=== PATIENT | male | born 1945 | race African-American/Black ===

== ENCOUNTER 2017-01-31 09:32 | Inpatient (IN) | payer MEDICARE, OTHER ==
[~2017-01-31] VITALS: Ht 172.7 cm; Wt 115.3 kg
[2017-01-31 10:30] VITALS: BP 112/78
[2017-01-31 11:11] LABS: HEMATOCRIT 38.5 % (39.0-50.0); HEMOGLOBIN 10.8 g/dl (14.0-18.0); MEAN CELL VOLUME 75.2 fL CALC (80.0-100.0); MEAN CORPUSCULAR HGB 21.1 pG CALC (26.0-32.0); MEAN CORPUSCULAR HGB CONC 28.1 g/L CALC (32.0-36.0); RED BLOOD COUNT 5.12 mill/uL (4.70-6.10); RED CELL DISTRI WIDTH 16.6 % (11.5-15.5)
[2017-01-31 11:23] LABS: ALBUMIN 3.8 g/dL (3.2-5.0); CALCIUM 9.2 mg/dL (8.4-10.2); CREATININE 1.5 mg/dL (0.7-1.3); MAGNESIUM 1.8 mg/dL (1.6-2.3); POTASSIUM 3.9 mmol/l (3.5-5.1)
[2017-01-31 11:28] LABS: INTERNATIONAL NORMALIZED RATIO 1.2 RATIO (0.7-1.3); PROTHROMBIN TIME 12.7 SECONDS (9.0-12.5)
[2017-01-31] MEDS ORDERED: LISINOPRIL20 M1 PO (12:03)
[2017-01-31] MEDS ORDERED: VICTOZA18 MG/3 ML SC (12:05)
[2017-01-31] MEDS ORDERED: AMIODARONE200 MG PO (12:06)
[2017-01-31] MEDS ORDERED: CLOPIDOGREL75 MG PO (12:07)
[2017-01-31] MEDS ORDERED: CRESTOR20 MG PO (12:09)
[2017-01-31] MEDS ORDERED: DEMADEX10 MG PO (12:10)
[2017-01-31 15:47] VITALS: BP 121/81
[2017-01-31 18:23] LABS: URINE BILIRUBIN - DIPSTICK NEGATIVE (NEGATIVE); URINE BLOOD DIPSTICK NEGATIVE (NEGATIVE); URINE CLARITY CLEAR; URINE COLOR YELLOW; URINE GLUCOSE - DIPSTICK NEGATIVE (NEGATIVE); URINE KETONE NEGATIVE (NEGATIVE); URINE LEUK ESTERASE NEGATIVE (Negative); URINE NITRITE - DIPSTICK NEGATIVE (Negative); URINE PH 5.5 (4.5-8.0); URINE PROTEIN - DIPSTICK NEGATIVE (NEG-TRACE); URINE SPECIFIC GRAVITY <=1.005; URINE UROBILINOGEN - DIPSTICK 0.2 E.U./dL (0.2)
[2017-01-31 19:24] VITALS: BP 128/78
[2017-02-01 04:35] VITALS: BP 122/87
[2017-02-01 06:33] LABS: HEMATOCRIT 38.7 % (39.0-50.0); HEMOGLOBIN 10.9 g/dl (14.0-18.0); IMMATURE GRANULOCYTES 0.4 % (0.0-1.0); MEAN CELL VOLUME 75.6 fL CALC (80.0-100.0); MEAN CORPUSCULAR HGB 21.3 pG CALC (26.0-32.0); MEAN CORPUSCULAR HGB CONC 28.2 g/L CALC (32.0-36.0); NEUT# 7.11 thou/uL (1.82-7.42); RED BLOOD COUNT 5.12 mill/uL (4.70-6.10); RED CELL DISTRI WIDTH 16.6 % (11.5-15.5)
[2017-02-01 07:07] LABS: ALBUMIN 3.7 g/dL (3.2-5.0); BILIRUBIN, TOTAL 0.5 mg/dL (0.0-1.4); CALCIUM 9.5 mg/dL (8.4-10.2); CREATININE 1.6 mg/dL (0.7-1.3); MAGNESIUM 1.7 mg/dL (1.6-2.3); POTASSIUM 3.7 mmol/l (3.5-5.1); TOTAL PROTEIN 6.6 g/dL (6.3-8.2)
[2017-02-01 09:09] VITALS: BP 107/63
[2017-02-01 12:13] VITALS: BP 95/62
[2017-02-01 16:27] VITALS: BP 94/66
[2017-02-01 19:35] VITALS: BP 134/80
[2017-02-01 23:45] VITALS: BP 95/66
[2017-02-02] VITALS (7 sets, daily range): BP systolic 91–118; BP diastolic 61–75
[2017-02-02 05:27] LABS: HEMATOCRIT 37.3 % (39.0-50.0); HEMOGLOBIN 10.6 g/dl (14.0-18.0); IMMATURE GRANULOCYTES 0.2 % (0.0-1.0); MEAN CELL VOLUME 75.4 fL CALC (80.0-100.0); MEAN CORPUSCULAR HGB 21.4 pG CALC (26.0-32.0); MEAN CORPUSCULAR HGB CONC 28.4 g/L CALC (32.0-36.0); NEUT# 7.24 thou/uL (1.82-7.42); RED BLOOD COUNT 4.95 mill/uL (4.70-6.10); RED CELL DISTRI WIDTH 16.5 % (11.5-15.5)
[2017-02-02 05:42] LABS: CALCIUM 9.5 mg/dL (8.4-10.2); CREATININE 1.6 mg/dL (0.7-1.3); MAGNESIUM 1.8 mg/dL (1.6-2.3); POTASSIUM 3.8 mmol/l (3.5-5.1)
[2017-02-03 04:15] VITALS: BP 97/53
[2017-02-03 05:11] LABS: HEMATOCRIT 36.8 % (39.0-50.0); HEMOGLOBIN 10.4 g/dl (14.0-18.0); IMMATURE GRANULOCYTES 0.3 % (0.0-1.0); MEAN CELL VOLUME 75.6 fL CALC (80.0-100.0); MEAN CORPUSCULAR HGB 21.4 pG CALC (26.0-32.0); MEAN CORPUSCULAR HGB CONC 28.3 g/L CALC (32.0-36.0); NEUT# 6.69 thou/uL (1.82-7.42); RED BLOOD COUNT 4.87 mill/uL (4.70-6.10); RED CELL DISTRI WIDTH 16.6 % (11.5-15.5)
[2017-02-03 05:20] VITALS: BP 90/53
[2017-02-03 05:26] LABS: CALCIUM 9.3 mg/dL (8.4-10.2); CREATININE 1.7 mg/dL (0.7-1.3); POTASSIUM 3.8 mmol/l (3.5-5.1)
[2017-02-03 07:58] VITALS: BP 100/62
[2017-02-03 09:23] VITALS: BP 130/70
[2017-02-03] MEDS ORDERED: CARVEDILOL6.25 MG PO (12:32)
== END 2017-02-03 15:50 | disposition home or self-care (01) | DRG 291 ==
LOC: ENPENDDIS → MS2 09:32
PROVIDERS: ADMIT Internal Medicine; ATTEND Internal Medicine
DX: I13.0 Hypertensive heart and chronic kidney disease with heart failure and stage 1 through stage 4 chronic kidney disease, or unspecified chronic kidney disease (principal); I50.23 Acute on chronic systolic (congestive) heart failure; E11.22 Type 2 diabetes mellitus with diabetic chronic kidney disease; E11.65 Type 2 diabetes mellitus with hyperglycemia; N18.3 Chronic kidney disease, stage 3 (moderate); I25.5 Ischemic cardiomyopathy; I48.91 Unspecified atrial fibrillation; E78.5 Hyperlipidemia, unspecified; E66.01 Morbid (severe) obesity due to excess calories; G47.33 Obstructive sleep apnea (adult) (pediatric); I70.209 Unspecified atherosclerosis of native arteries of extremities, unspecified extremity; I25.118 Atherosclerotic heart disease of native coronary artery with other forms of angina pectoris; D63.8 Anemia in other chronic diseases classified elsewhere; Z95.810 Presence of automatic (implantable) cardiac defibrillator; Z95.1 Presence of aortocoronary bypass graft; Z87.891 Personal history of nicotine dependence; Z79.84 Long term (current) use of oral hypoglycemic drugs; Z68.38 Body mass index [BMI] 38.0-38.9, adult
CPT/HCPCS: A9540; A9567

== ENCOUNTER 2017-08-21 13:54 | Inpatient (IN) | payer MEDICARE, OTHER ==
[~2017-08-21] VITALS: Ht 175.3 cm; Wt 120.8 kg
[~2017-08-21 13:54] MED LIST: AMIODARONE200 MG PO; CARVEDILOL6.25 MG PO; CLOPIDOGREL75 MG PO; CRESTOR20 MG PO; DEMADEX10 MG PO; LISINOPRIL20 M1 PO; VICTOZA18 MG/3 ML SC
[2017-08-21 14:40] VITALS: BP 116/89
[2017-08-21] MEDS ORDERED: ATORVASTATIN CA40 MG PO (15:03)
[2017-08-21] MEDS ORDERED: ENTRESTO 24-261 TAB (15:04)
[2017-08-21 15:11] LABS: HEMATOCRIT 44.8 % (39.0-50.0); HEMOGLOBIN 12.4 g/dl (14.0-18.0); IMMATURE GRANULOCYTES 0.5 % (0.0-1.0); MEAN CELL VOLUME 78.3 fL CALC (80.0-100.0); MEAN CORPUSCULAR HGB 21.7 pG CALC (26.0-32.0); MEAN CORPUSCULAR HGB CONC 27.7 g/L CALC (32.0-36.0); NEUT# 8.86 thou/uL (1.82-7.42); RED BLOOD COUNT 5.72 mill/uL (4.70-6.10)
[2017-08-21 15:21] LABS: ACT PARTIAL THROMBO TIME 25.2 SECONDS (20.0-32.5); INTERNATIONAL NORMALIZED RATIO 1.4 RATIO (0.7-1.3); PROTHROMBIN TIME 15.9 SECONDS (9.0-12.5)
[2017-08-21 15:22] LABS: ALBUMIN 3.3 g/dL (3.2-5.0)
[2017-08-21 15:54] LABS: TSH, 3RD GENERATION 4.37 uIU/mL (0.47 - 4.68)
[2017-08-21 15:59] VITALS: BP 121/90
[2017-08-21 16:34] LABS: ALBUMIN 3.3 g/dL (3.2-5.0); BILIRUBIN, TOTAL 2.9 mg/dL (0.0-1.4); CALCIUM 9.5 mg/dL (8.4-10.2); CREATININE 1.6 mg/dL (0.7-1.3); POTASSIUM 3.5 mmol/l (3.5-5.1); TOTAL PROTEIN 5.8 g/dL (6.3-8.2)
[2017-08-21] MEDS ORDERED: PYRIDOXINE25 MG PO (16:46)
[2017-08-21] MEDS ORDERED: FISH OIL1000 MG PO (16:46)
[2017-08-21 19:07] VITALS: BP 108/83
[2017-08-21 23:30] VITALS: BP 112/64
[2017-08-22] VITALS (25 sets, daily range): BP systolic 82–114; BP diastolic 53–82
[2017-08-22 09:50] LABS: CREATININE 1.6 mg/dL (0.7-1.3); POTASSIUM 3.5 mmol/l (3.5-5.1)
[2017-08-22 10:01] LABS: HEMOGLOBIN 12.3 g/dl (14.0-18.0); IMMATURE GRANULOCYTES 0.3 % (0.0-1.0); MEAN CELL VOLUME 79.4 fL CALC (80.0-100.0); MEAN CORPUSCULAR HGB 21.7 pG CALC (26.0-32.0); MEAN CORPUSCULAR HGB CONC 27.3 g/L CALC (32.0-36.0); NEUT# 9.33 thou/uL (1.82-7.42); RED BLOOD COUNT 5.67 mill/uL (4.70-6.10); RED CELL DISTRI WIDTH 21.9 % (11.5-15.5)
[2017-08-22 17:02] LABS: URINE BLOOD DIPSTICK NEGATIVE (NEGATIVE); URINE COLOR YELLOW; URINE GLUCOSE - DIPSTICK NEGATIVE (NEGATIVE); URINE KETONE NEGATIVE (NEGATIVE); URINE LEUK ESTERASE NEGATIVE (NEGATIVE); URINE NITRITE - DIPSTICK NEGATIVE (Negative); URINE PH 5.5 (4.5-8.0); URINE PROTEIN - DIPSTICK TRACE mg/dL (NEG-TRACE); URINE SPECIFIC GRAVITY 1.015
[2017-08-22 17:26] LABS: URINE BILIRUBIN - DIPSTICK SMALL (NEGATIVE); URINE CLARITY CLEAR
[2017-08-23] VITALS (65 sets, daily range): BP systolic 74–125; BP diastolic 53–88
[2017-08-23 04:53] LABS: HEMATOCRIT 45.4 % (39.0-50.0); HEMOGLOBIN 12.6 g/dl (14.0-18.0); MEAN CELL VOLUME 79.1 fL CALC (80.0-100.0); MEAN CORPUSCULAR HGB CONC 27.8 g/L CALC (32.0-36.0); RED BLOOD COUNT 5.74 mill/uL (4.70-6.10); RED CELL DISTRI WIDTH 21.4 % (11.5-15.5)
[2017-08-23 05:05] LABS: CALCIUM 9.3 mg/dL (8.4-10.2); CREATININE 1.6 mg/dL (0.7-1.3); POTASSIUM 4.2 mmol/l (3.5-5.1)
[2017-08-24] VITALS (38 sets, daily range): BP systolic 82–148; BP diastolic 55–101
[2017-08-24 05:15] LABS: HEMATOCRIT 44.6 % (39.0-50.0); HEMOGLOBIN 12.3 g/dl (14.0-18.0); IMMATURE GRANULOCYTES 0.6 % (0.0-1.0); MEAN CELL VOLUME 79.1 fL CALC (80.0-100.0); MEAN CORPUSCULAR HGB 21.8 pG CALC (26.0-32.0); MEAN CORPUSCULAR HGB CONC 27.6 g/L CALC (32.0-36.0); NEUT# 9.5 thou/uL (1.82-7.42); RED BLOOD COUNT 5.64 mill/uL (4.70-6.10); RED CELL DISTRI WIDTH 21.6 % (11.5-15.5)
[2017-08-24 05:30] LABS: CALCIUM 9.1 mg/dL (8.4-10.2); CREATININE 1.6 mg/dL (0.7-1.3); POTASSIUM 3.8 mmol/l (3.5-5.1)
[2017-08-25] VITALS (25 sets, daily range): BP systolic 82–123; BP diastolic 53–93
[2017-08-25 07:01] LABS: HEMATOCRIT 45.2 % (39.0-50.0); HEMOGLOBIN 12.4 g/dl (14.0-18.0); IMMATURE GRANULOCYTES 0.3 % (0.0-1.0); MEAN CELL VOLUME 79.6 fL CALC (80.0-100.0); MEAN CORPUSCULAR HGB 21.8 pG CALC (26.0-32.0); MEAN CORPUSCULAR HGB CONC 27.4 g/L CALC (32.0-36.0); NEUT# 10.08 thou/uL (1.82-7.42); RED BLOOD COUNT 5.68 mill/uL (4.70-6.10); RED CELL DISTRI WIDTH 21.7 % (11.5-15.5)
[2017-08-25 07:12] LABS: CALCIUM 9.4 mg/dL (8.4-10.2); CREATININE 1.5 mg/dL (0.7-1.3); POTASSIUM 4.1 mmol/l (3.5-5.1)
== END 2017-08-25 20:04 | disposition short-term general hospital (02) | DRG 291 ==
LOC: MS2 13:54 → ICU 08-22 10:01 → MS2 08-22 10:01 → ICU 08-22 10:24
PROVIDERS: Internal Medicine; Nurse Practitioner Family; ADMIT Internal Medicine; ATTEND Internal Medicine
PROC: 02HV33Z Insertion of Infusion Device into Superior Vena Cava, Percutaneous Approach (ICD-10-PCS; principal; 2017-08-22)
PROC: B518ZZA Fluoroscopy of Superior Vena Cava, Guidance (ICD-10-PCS; 2017-08-22)
PROC: 02PYX3Z Removal of Infusion Device from Great Vessel, External Approach (ICD-10-PCS; 2017-08-25)
PROC: 02HV33Z Insertion of Infusion Device into Superior Vena Cava, Percutaneous Approach (ICD-10-PCS; 2017-08-25)
PROC: B518ZZA Fluoroscopy of Superior Vena Cava, Guidance (ICD-10-PCS; 2017-08-25)
DX: I13.0 Hypertensive heart and chronic kidney disease with heart failure and stage 1 through stage 4 chronic kidney disease, or unspecified chronic kidney disease (principal); I50.23 Acute on chronic systolic (congestive) heart failure; I47.2 Ventricular tachycardia; E11.22 Type 2 diabetes mellitus with diabetic chronic kidney disease; I48.91 Unspecified atrial fibrillation; R16.0 Hepatomegaly, not elsewhere classified; I25.5 Ischemic cardiomyopathy; E66.01 Morbid (severe) obesity due to excess calories; I25.10 Atherosclerotic heart disease of native coronary artery without angina pectoris; T44.995A Adverse effect of other drug primarily affecting the autonomic nervous system, initial encounter; I50.84 End stage heart failure; N18.3 Chronic kidney disease, stage 3 (moderate); G47.33 Obstructive sleep apnea (adult) (pediatric); R11.2 Nausea with vomiting, unspecified; R10.9 Unspecified abdominal pain; R42 Dizziness and giddiness; E78.5 Hyperlipidemia, unspecified; Z95.810 Presence of automatic (implantable) cardiac defibrillator; Z87.891 Personal history of nicotine dependence; Z95.1 Presence of aortocoronary bypass graft; Z79.84 Long term (current) use of oral hypoglycemic drugs
CPT/HCPCS: G0378; G0379; J1250; J2997

== ENCOUNTER 2019-01-31 12:58 | Emergency (ER) | payer MEDICARE, OTHER ==
[~2019-01-31] VITALS: Ht 175.3 cm; Wt 102.0 kg
[~2019-01-31 12:58] MED LIST changes: +ATORVASTATIN CA40 MG PO; +ENTRESTO 24-261 TAB; +FISH OIL1000 MG PO; +PYRIDOXINE25 MG PO
[2019-01-31 13:59] LABS: HEMATOCRIT 40.3 % (39.0-50.0); HEMOGLOBIN 10.7 g/dl (14.0-18.0); IMMATURE GRANULOCYTES 0.5 % (0.0-5.0); MEAN CORPUSCULAR HGB 19.2 pG CALC (26.0-32.0); MEAN CORPUSCULAR HGB CONC 26.6 g/L CALC (32.0-36.0); NEUT# 8.6 thou/uL (1.82-7.42); RED BLOOD COUNT 5.56 mill/uL (4.70-6.10); RED CELL DISTRI WIDTH 20.7 % (11.5-15.5)
[2019-01-31 14:12] LABS: ALBUMIN 3.8 g/dL (3.2-5.0); BILIRUBIN, TOTAL 2.5 mg/dL (0.0-1.4); CREATININE 1.7 mg/dL (0.7-1.3); TOTAL PROTEIN 6.4 g/dL (6.3-8.2)
[2019-01-31 14:28] LABS: MEAN CELL VOLUME 72.5 fL CALC (80.0-100.0)
[2019-01-31] MEDS ORDERED: LOMOTIL2.5 MG PO (15:44)
[2019-01-31 15:56] VITALS: BP 113/68
[2019-01-31 17:07] LABS: C. DIFFICILE TOXIN A&B NEGATIVE (NEGATIVE)
== END 2019-01-31 16:21 | disposition home or self-care (01) ==
LOC: ED 12:58
DX: R19.7 Diarrhea, unspecified (principal); R10.32 Left lower quadrant pain; R53.83 Other fatigue; I10 Essential (primary) hypertension; Z86.73 Personal history of transient ischemic attack (TIA), and cerebral infarction without residual deficits; E11.9 Type 2 diabetes mellitus without complications